=== PATIENT | male | born 1970 ===

== ENCOUNTER 2023-05-06 11:00 | Inpatient (IN) | payer OTHER ==
[~2023-05-06] VITALS: Ht 172.7 cm; Wt 108.9 kg
[2023-05-06] MEDS ORDERED: FEBUXOSTAT40 MG PO (12:10)
[2023-05-10] MEDS ORDERED: CANDESARTAN CILE4 MG (11:36)
[2023-05-10] MEDS ORDERED: SIMVASTATIN20 MG (11:36)
[2023-05-11 06:23] LABS: HEMATOCRIT 31.9 % (39.0-48.0); HEMOGLOBIN 10.6 g/dL (13-16.00); MEAN CELL VOLUME 84.3 fL (80.0-100.00); MEAN CORPUSCULAR HEMOGLOBIN 28.1 pg (27.00-32.0); MEAN CORPUSCULAR HGB CONC 33.4 g/dl (32.0-36.0); PLATELET COUNT 179 K/uL (150-450); RED BLOOD COUNT 3.78 M/uL (4.00-6.00); RED CELL DISTRIBUTION WIDTH 13.5 % (11.5-14.5)
[2023-05-12 06:35] LABS: HEMATOCRIT 31.6 % (39.0-48.0); HEMOGLOBIN 10.6 g/dL (13-16.00); MEAN CELL VOLUME 84.9 fL (80.0-100.00); MEAN CORPUSCULAR HEMOGLOBIN 28.5 pg (27.00-32.0); MEAN CORPUSCULAR HGB CONC 33.6 g/dl (32.0-36.0); PLATELET COUNT 183 K/uL (150-450); RED BLOOD COUNT 3.72 M/uL (4.00-6.00); RED CELL DISTRIBUTION WIDTH 12.7 % (11.5-14.5)
[2023-05-12] MEDS ORDERED: PERCOCET 5-3251 EACH PO (16:03)
[2023-05-12] MEDS ORDERED: ELIQUIS2.5 MG PO (16:03)
[2023-05-12] MEDS ORDERED: CIPRO100 MG PO (16:03)
== END 2023-05-12 17:14 | disposition home or self-care (01) | DRG 468 ==
LOC: O/R 05-10 05:40 → SURH 05-10 05:40
PROVIDERS: ADMIT Orthopaedic Surgery; ATTEND Orthopaedic Surgery
PROC: 0MNP0ZZ Release Left Knee Bursa and Ligament, Open Approach (ICD-10-PCS; 2023-05-10)
PROC: 0SPD0JZ Removal of Synthetic Substitute from Left Knee Joint, Open Approach (ICD-10-PCS; 2023-05-10)
PROC: 0SBD0ZZ Excision of Left Knee Joint, Open Approach (ICD-10-PCS; 2023-05-10)
PROC: 0SRD0J9 Replacement of Left Knee Joint with Synthetic Substitute, Cemented, Open Approach (ICD-10-PCS; principal; 2023-05-10 13:00)
DX: T84.84XA Pain due to internal orthopedic prosthetic devices, implants and grafts, initial encounter (principal); S82.142S Displaced bicondylar fracture of left tibia, sequela; M17.12 Unilateral primary osteoarthritis, left knee; M22.12 Recurrent subluxation of patella, left knee